=== PATIENT | male | born 1960 | race Caucasian/White ===

== ENCOUNTER 2016-12-01 13:58 | Emergency (ER) | payer OTHER ==
--- NOTE | 2016-12-01 15:10 | ED ORDER SUMMARY ---
..... Patient: CROW CHRISTINA OrderSheet [facility] VisitID: [id number] [address] [place] [address] 56y, M Registration Date/Time: 12/01/2016 ORDER SHEET Weight: 108.8 kg (stated) Allergies: Aspirin GENERAL ORDERS: Ankle 3 or 4V Left Urgent (14:26 12/01/2016 Vernell Patterson) (14:36 [place]) MEDICATION ORDERS: IV FLUIDS: ORDER SHEET NOTES: [Electronically signed by Rosemary Wilson R.N. (15:22 12/01/2016)] [Electronically signed by William Johnson Dr. (16:21 12/03/2016)] [Electronically locked/signed by Rosemary Wilson R.N. (15:12/01/2016)]
--- NOTE | 2016-12-01 15:10 | ED CLINICAL REPORT ---
Clinical Report - Physicians/Mid Levels [facility] [address] [address] 12/01/2016 14:01 Patient: CROW CHRISTINA Arrived- By private vehicle. Historian- patient. HISTORY OF PRESENT ILLNESS Chief Complaint: Injury to the left ankle. The injury happened Past month. (does not recall). (does not recall). Patient is experiencing moderate pain. Patient denies injury to the head or neck. No other injury. (reports he has been evaluated for varicose veins over the area. Reports noDVT when evaluated At outside facility. Reports the redness, swelling, Fever, nausea, or vomiting.). REVIEW OF SYSTEMS No weakness, numbness, suspected foreign body or skin laceration. All systems otherwise negative, except as recorded above. PAST HISTORY See nurses notes. Tetanus immunization status is up-to-date. Problems: no known problems. Medications: Tylenol Oral. Allergies: Aspirin.(itching, rash). SOCIAL HISTORY Smoker- current status unknown. No alcohol use or drug use. Is a local resident. ADDITIONAL NOTES The nursing notes have been reviewed. PHYSICAL EXAM Vital Signs: 12/01/2016 14:13 BP: 148/70. HR: 100. RR: 20. O2 saturation: 99%. Temp: 97.8 F. Pain level now: 8/10. Blood pressure normal. Oxygen saturation normal. Appearance: Alert. Oriented X3. No acute distress. Head: Head atraumatic. Eyes: Pupils equal, round and reactive to light. Eyes normal inspection. ENT: Ears normal. Nose normal. Pharynx normal. Neck: Normal inspection. Neck supple. C-spine non-tender. CVS: Normal heart rate and rhythm. Heart sounds normal. Pulses normal. Respiratory: No respiratory distress. Breath sounds normal. Chest nontender. Abdomen: No visible injury. Soft and nontender. Bowel sounds normal. Skin: Skin intact. Skin warm and dry. Extremities: (mild tenderness over the lateral malleolus on the left ankle. Small area of varicose veins over the area. No joint line tenderness. No bony other maladies. No crepitus. Patient is neurovascularly intact. No knee tenderness. Compartments are soft.). Extremities otherwise negative. Neuro, Vascular and Tendons: Vascular status intact. Sensation intact. Motor intact. Tendon function intact. Gait: Normal gait. LABS, X-RAYS, AND EKG Lt Ankle X-ray: No fracture. Normal alignment. No bony lesion or air in the soft tissue. Joint spaces normal. Views: AP, lateral, mortise and oblique. Technique: good. The X-rays were independently viewed by me and interpreted contemporaneously by me. Prior films were not available for comparison. PROGRESS AND PROCEDURES Course of Care: he patient is a pleasant 56-year-old male presenting for revised of left-sided ankle pain. The patient reports no known incidence of trauma. At this time different diagnosis includes strain/sprain, or pathological fracture. No evidence of infection. Do not feel patient has septic joint. Do not feel joint tap and arthrocentesis is needed at this time. Patient's symptoms have also been ongoing for the past month. Do not feel this is consistent with infectious etiology. Patient is agreeable to treatment plan. Patient Noted to be neurovascularly intact. workup does not show any acute osseous abnormalities with x-ray. Patient continues to be neurovascularly intact. No redness or swelling noted to the area. Patient continues to be afebrile. Patient also continues to be nontoxic and in no acute distress. Do not feel further workup in the emergency department required. Referral to podiatry provided. I discussed with patient weturn precautions. All questios and was agreeable to them. Do not feel patient needs to be admitted to the hospital require further emergency department workup/evaluation. Again do not feel that this is a septic Joint. Disposition: Discharged. Condition: good. CLINICAL IMPRESSION 12/01/2016 14:13 BP: 148/70. HR: 100. RR: 20. O2 saturation: 99%. Temp: 97.8 F. Pain level now: 8/10. Hypertensive. Oxygen saturation normal. Acute nontraumatic pain in the left lower extremity (ankle)(medial, subacute). INSTRUCTIONS Warnings: GENERAL WARNINGS: Return or contact your physician immediately if your condition worsens or changes unexpectedly, if not improving as expected, or if other problems arise. Specifically return if pain, vomiting, bleeding, breathing difficulty or fever. Your Current Medications: CONTINUE TAKING THE FOLLOWING MEDICATIONS: Tylenol Oral. Follow-up: Return to the emergency department as needed. Follow up with your doctor in three days. Reason for referral: recheck today's concerns. Summary of care provided to patient via paper. Screening today revealed the patient's blood pressure to be in the hypertensive range. The patient should follow up with a primary care provider for blood pressure management. Understanding of the discharge instructions verbalized by patient. Follow-up with: Sagar Alicea DPM, Podiatry, , [facility], [address] [place] [address], [place] [address] Follow up in one week. Reason for referral: recheck today's concerns. Summary of care provided to patient via paper. (Electronically signed by William Johnson Dr. 12/03/2016 16:21)
--- NOTE | 2016-12-01 15:10 | ED ORDER SUMMARY ---
..... Patient: CROW CHRISTINA OrderSheet [facility] VisitID: [id number] [address] [place] [address] 56y, M Registration Date/Time: 12/01/2016 ORDER SHEET Weight: 108.8 kg (stated) Allergies: Aspirin GENERAL ORDERS: Ankle 3 or 4V Left Urgent (14:26 12/01/2016 Vernell Patterson) (14:36 [place]) MEDICATION ORDERS: IV FLUIDS: ORDER SHEET NOTES: [Electronically signed by Rosemary Wilson R.N. (15:22 12/01/2016)] [Electronically signed by William Johnson Dr. (16:21 12/03/2016)] [Electronically locked/signed by Rosemary Wilson R.N. (15:12/01/2016)]
--- NOTE | 2016-12-01 15:10 | ED CLINICAL REPORT ---
Clinical Report - Physicians/Mid Levels [facility] [address] [place] [place] [address] 12/01/2016 14:01 Patient: CROW CHRISTINA Arrived- By private vehicle. Historian- patient. HISTORY OF PRESENT ILLNESS Chief Complaint: Injury to the left ankle. The injury happened Past month. (does not recall). (does not recall). Patient is experiencing moderate pain. Patient denies injury to the head or neck. No other injury. (reports he has been evaluated for varicose veins over the area. Reports noDVT when evaluated At outside facility. Reports the redness, swelling, Fever, nausea, or vomiting.). REVIEW OF SYSTEMS No weakness, numbness, suspected foreign body or skin laceration. All systems otherwise negative, except as recorded above. PAST HISTORY See nurses notes. Tetanus immunization status is up-to-date. Problems: no known problems. Medications: Tylenol Oral. Allergies: Aspirin.(itching, rash). SOCIAL HISTORY Smoker- current status unknown. No alcohol use or drug use. Is a local resident. ADDITIONAL NOTES The nursing notes have been reviewed. PHYSICAL EXAM Vital Signs: 12/01/2016 14:13 BP: 148/70. HR: 100. RR: 20. O2 saturation: 99%. Temp: 97.8 F. Pain level now: 8/10. Blood pressure normal. Oxygen saturation normal. Appearance: Alert. Oriented X3. No acute distress. Head: Head atraumatic. Eyes: Pupils equal, round and reactive to light. Eyes normal inspection. ENT: Ears normal. Nose normal. Pharynx normal. Neck: Normal inspection. Neck supple. C-spine non-tender. CVS: Normal heart rate and rhythm. Heart sounds normal. Pulses normal. Respiratory: No respiratory distress. Breath sounds normal. Chest nontender. Abdomen: No visible injury. Soft and nontender. Bowel sounds normal. Skin: Skin intact. Skin warm and dry. Extremities: (mild tenderness over the lateral malleolus on the left ankle. Small area of varicose veins over the area. No joint line tenderness. No bony other maladies. No crepitus. Patient is neurovascularly intact. No knee tenderness. Compartments are soft.). Extremities otherwise negative. Neuro, Vascular and Tendons: Vascular status intact. Sensation intact. Motor intact. Tendon function intact. Gait: Normal gait. LABS, X-RAYS, AND EKG Lt Ankle X-ray: No fracture. Normal alignment. No bony lesion or air in the soft tissue. Joint spaces normal. Views: AP, lateral, mortise and oblique. Technique: good. The X-rays were independently viewed by me and interpreted contemporaneously by me. Prior films were not available for comparison. PROGRESS AND PROCEDURES Course of Care: he patient is a pleasant 56-year-old male presenting for revised of left-sided ankle pain. The patient reports no known incidence of trauma. At this time different diagnosis includes strain/sprain, or pathological fracture. No evidence of infection. Do not feel patient has septic joint. Do not feel joint tap and arthrocentesis is needed at this time. Patient's symptoms have also been ongoing for the past month. Do not feel this is consistent with infectious etiology. Patient is agreeable to treatment plan. Patient Noted to be neurovascularly intact. workup does not show any acute osseous abnormalities with x-ray. Patient continues to be neurovascularly intact. No redness or swelling noted to the area. Patient continues to be afebrile. Patient also continues to be nontoxic and in no acute distress. Do not feel further workup in the emergency department required. Referral to podiatry provided. I discussed with patient weturn precautions. All questios and was agreeable to them. Do not feel patient needs to be admitted to the hospital require further emergency department workup/evaluation. Again do not feel that this is a septic Joint. Disposition: Discharged. Condition: good. CLINICAL IMPRESSION 12/01/2016 14:13 BP: 148/70. HR: 100. RR: 20. O2 saturation: 99%. Temp: 97.8 F. Pain level now: 8/10. Hypertensive. Oxygen saturation normal. Acute nontraumatic pain in the left lower extremity (ankle)(medial, subacute). INSTRUCTIONS Warnings: GENERAL WARNINGS: Return or contact your physician immediately if your condition worsens or changes unexpectedly, if not improving as expected, or if other problems arise. Specifically return if pain, vomiting, bleeding, breathing difficulty or fever. Your Current Medications: CONTINUE TAKING THE FOLLOWING MEDICATIONS: Tylenol Oral. Follow-up: Return to the emergency department as needed. Follow up with your doctor in three days. Reason for referral: recheck today's concerns. Summary of care provided to patient via paper. Screening today revealed the patient's blood pressure to be in the hypertensive range. The patient should follow up with a primary care provider for blood pressure management. Understanding of the discharge instructions verbalized by patient. Follow-up with: Sagar Alicea DPM, Podiatry, , [facility], [address] [place] [address], [place] [address] Follow up in one week. Reason for referral: recheck today's concerns. Summary of care provided to patient via paper. (Electronically signed by William Johnson Dr. 12/03/2016 16:21)
--- NOTE | 2016-12-01 15:10 | ED NURSING NOTES ---
Clinical Report - Nurses [facility] [place] [address] 12/01/2016 14:01 Patient: CROW CHRISTINA TRIAGE Triage time 14:13. Acuity: LEVEL 3. Chief Complaint: LEFT LOWER EXTREMITY PAIN. Location of symptoms- left ankle (hurts all the time, more when walking .). Alert. No acute distress. --14:23 Rosemary Wilson R.N. 14:13 12/01/16. BP: 148/70. HR: 100. RR: 20. O2 saturation: 99%. Temp: 97.8 F. Pain level now: 05/29. --14:23 Rosemary Wilson R.N. 14:13 12/01/16. BP: 148/70. HR: 100. RR: 20. O2 saturation: 99%. Temp: 97.8 F. Pain level now: 05/29. --14:23 Rosemary Wilson R.N. Weight: 108.8 kg stated. Height/Length: 71 inches Per Patient. BMI: 33.5. --14:17 Rosemary Wilson R.N. Medications Tylenol Oral. --14:15 Rosemary Wilson R.N. Medication/allergy information source: the patient. --14:23 Rosemary Wilson R.N. Allergies Aspirin.(itching, rash) --14:15 Rosemary Wilson R.N. History Arrived by private vehicle. Historian: patient. Primary physician ([facility] No injury occurred. This occurred (1 months). He has had trouble walking (painful). 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 PAST MEDICAL HX: Negative. Tetanus status: unknown. SURGERY HX: Cholecystectomy. Right lower extremity fracture repair has been performed once. Abdominal hernia repair. ( skin graft to lt palm, cyst from shoulder. colon resection). SOCIAL HX: Heavy tobacco smoker (cigarette)- less than 1 pack per day. No alcohol use or drug use. FALL RISK ASSESSMENT: Fall risk assessment completed. No fall risk identified. NUTRITIONAL RISK ASSESSMENT: The nutritional risk assessment revealed no deficiencies. FUNCTIONAL ASSESSMENT: Functional assessment: no impairments noted. LEARNING NEEDS ASSESSMENT: The learning needs assessment revealed no barriers. SKIN INTEGRITY ASSESSMENT: Skin integrity risk assessment completed. No skin integrity risk identified. --14:23 Rosemary Wilson R.N. Interventions ID band on patient. To room. --14:23 Rosemary Wilson R.N. PHYSICAL ASSESSMENT Ambulatory to room. GENERAL / NEURO / PSYCH: Appears in pain and anxious. EXTREMITIES: Left ankle: tenderness. SKIN: Skin intact. Skin is warm and dry. --14:24 Rosemary Wilson R.N. NURSING PROGRESS NOTES Extremity elevated. Patient gowned. Two patient identifiers checked. Call light placed in reach. Side rails up. Bed placed in lowest position. Brakes of bed on. Patient ready for evaluation. --14:24 Rosemary Wilson R.N. DISPOSITION / DISCHARGE 15:21 12/01/16. No learning barriers present. Discharge instructions provided and reviewed with the patient. Reviewed referral to a instrument man for followup. Patient verbalized understanding. Written instructions provided in Sami. The patient was discharged home. He left the Emergency Department ambulatory and via private vehicle. Patient driving. Medication list reviewed and validated. --15:21 Rosemary Wilson R.N. 15:20 12/01/16. BP: 126/74. HR: 80. RR: 20. O2 saturation: 98%. Temp: deferred. Pain level now: 12/27. 14:13 12/01/16. BP: 148/70. HR: 100. RR: 20. O2 saturation: 99%. Temp: 97.8 F. Pain level now: 05/29. --15:21 Rosemary Wilson R.N. Locked/Released at 12/01/2016 15:22 by Rosemary Wilson R.N.
--- NOTE | 2016-12-01 15:10 | ED NURSING NOTES ---
Clinical Report - Nurses [facility] [place] [address] 12/01/2016 14:01 Patient: CROW CHRISTINA TRIAGE Triage time 14:13. Acuity: LEVEL 3. Chief Complaint: LEFT LOWER EXTREMITY PAIN. Location of symptoms- left ankle (hurts all the time, more when walking .). Alert. No acute distress. --14:23 Rosemary Wilson R.N. 14:13 12/01/16. BP: 148/70. HR: 100. RR: 20. O2 saturation: 99%. Temp: 97.8 F. Pain level now: 05/29. --14:23 Rosemary Wilson R.N. 14:13 12/01/16. BP: 148/70. HR: 100. RR: 20. O2 saturation: 99%. Temp: 97.8 F. Pain level now: 05/29. --14:23 Rosemary Wilson R.N. Weight: 108.8 kg stated. Height/Length: 71 inches Per Patient. BMI: 33.5. --14:17 Rosemary Wilson R.N. Medications Tylenol Oral. --14:15 Rosemary Wilson R.N. Medication/allergy information source: the patient. --14:23 Rosemary Wilson R.N. Allergies Aspirin.(itching, rash) --14:15 Rosemary Wilson R.N. History Arrived by private vehicle. Historian: patient. [facility] No injury occurred. This occurred (1 months). He has had trouble walking (painful). 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 PAST MEDICAL HX: Negative. Tetanus status: unknown. SURGERY HX: Cholecystectomy. Right lower extremity fracture repair has been performed once. Abdominal hernia repair. ( skin graft to lt palm, cyst from shoulder. colon resection). SOCIAL HX: Heavy tobacco smoker (cigarette)- less than 1 pack per day. No alcohol use or drug use. FALL RISK ASSESSMENT: Fall risk assessment completed. No fall risk identified. NUTRITIONAL RISK ASSESSMENT: The nutritional risk assessment revealed no deficiencies. FUNCTIONAL ASSESSMENT: Functional assessment: no impairments noted. LEARNING NEEDS ASSESSMENT: The learning needs assessment revealed no barriers. SKIN INTEGRITY ASSESSMENT: Skin integrity risk assessment completed. No skin integrity risk identified. --14:23 Rosemary Wilson R.N. Interventions ID band on patient. To room. --14:23 Rosemary Wilson R.N. PHYSICAL ASSESSMENT Ambulatory to room. GENERAL / NEURO / PSYCH: Appears in pain and anxious. EXTREMITIES: Left ankle: tenderness. SKIN: Skin intact. Skin is warm and dry. --14:24 Rosemary Wilson R.N. NURSING PROGRESS NOTES Extremity elevated. Patient gowned. Two patient identifiers checked. Call light placed in reach. Side rails up. Bed placed in lowest position. Brakes of bed on. Patient ready for evaluation. --14:24 Rosemary Wilson R.N. DISPOSITION / DISCHARGE 15:21 12/01/16. No learning barriers present. Discharge instructions provided and reviewed with the patient. Reviewed referral to a time stamp assembler for followup. Patient verbalized understanding. Written instructions provided in Frisian. The patient was discharged home. He left the Emergency Department ambulatory and via private vehicle. Patient driving. Medication list reviewed and validated. --15:21 Rosemary Wilson R.N. 15:20 12/01/16. BP: 126/74. HR: 80. RR: 20. O2 saturation: 98%. Temp: deferred. Pain level now: 12/27. 14:13 12/01/16. BP: 148/70. HR: 100. RR: 20. O2 saturation: 99%. Temp: 97.8 F. Pain level now: 05/29. --15:21 Rosemary Wilson R.N. Locked/Released at 12/01/2016 15:22 by Rosemary Wilson R.N.
--- NOTE | 2016-12-01 15:34 | DIAGNOSTIC IMAGING REPORT ---
PROCEDURE: XR ANKLE 3 OR 4 VIEWS - LEFT INDICATION: Medial ankle pain. TECHNIQUE: Four views. COMPARISON: None. FINDINGS: Osseous structures and joint spaces are normal. IMPRESSION: 1. Normal left ankle.
--- NOTE | 2016-12-03 16:21 | ED MAR SUMMARY ---
..... Medication Administration Record [facility] [address] [place], [place] [id number] Patient: CROW CHRISTINA Visit ID: [id number] 56y, M Weight: 108.8 kg Height/Length: 71 in BMI: 33.5 ALLERGIES: Aspirin
--- NOTE | 2016-12-03 16:21 | ED DISCHARGE INSTRUCTIONS ---
Patient: CROW CHRISTINA General Instructions [facility] VisitID: [id number] [place] [address] 56y, M Registration Date/Time: 12/01/2016 12/01/2016 14:13 BP: 148/70. HR: 100. RR: 20. O2 saturation: 99%. Temp: 97.8 F. Pain level now: 8/10. Hypertensive. Oxygen saturation normal. Acute nontraumatic pain in the left lower extremity (ankle)(medial, subacute). INSTRUCTIONS Warnings: GENERAL WARNINGS: Return or contact your physician immediately if your condition worsens or changes unexpectedly, if not improving as expected, or if other problems arise. Specifically return if pain, vomiting, bleeding, breathing difficulty or fever. Your Current Medications: CONTINUE TAKING THE FOLLOWING MEDICATIONS: Tylenol Oral. Follow-up: Return to the emergency department as needed. Follow up with your doctor in three days. Reason for referral: recheck today's concerns. Summary of care provided to patient via paper. Screening today revealed the patient's blood pressure to be in the hypertensive range. The patient should follow up with a primary care provider for blood pressure management. Understanding of the discharge instructions verbalized by patient. Follow-up with: Sagar Alicea DPM, Podiatry, , [facility], [address] [place] [address], [address] [address] Follow up in one week. Reason for referral: recheck today's concerns. Summary of care provided to patient via paper. ADDITIONAL INFORMATION Pain, Uncertain Cause [Acute] Pain is the bodys way of calling attention to a problem. Pain can be caused by many conditions - some minor, some serious. In your case, we were not able to find the exact cause for your pain. However, at this time there is no sign of any serious or life-threatening illness causing your pain. Sometimes more tests will be needed to determine the cause. Other times, just allowing more time to pass will either make it clear what the problem is, or the pain will go away by itself. Home Care: You may use acetaminophen (Tylenol) or ibuprofen (Motrin, Advil) to control pain, unless another medicine was prescribed. [NOTE: If you have chronic liver or kidney disease or ever had a stomach ulcer or GI bleeding, talk with your doctor before using these medicines.] Follow Up with your doctor or as advised by our staff. Get Prompt Medical Attention if any of the following occur: Changes in the pattern of your pain Appearance of new symptoms Fever of 100.4F (38C) or higher, or as directed by your healthcare provider You have been given the following additional information: Pain, Uncertain Cause (Acute) (Electronically signed by William Johnson Dr. 12/03/2016 16:21)
--- NOTE | 2016-12-03 16:21 | ED MAR SUMMARY ---
..... Medication Administration Record [facility] [address] [place] [place], [place] [id number] Patient: CROW CHRISTINA Visit ID: [id number] 56y, M Weight: 108.8 kg Height/Length: 71 in BMI: 33.5 ALLERGIES: Aspirin
--- NOTE | 2016-12-03 16:21 | ED MED RECONCILIATION SUMMARY ---
Patient: CROW CHRISTINA Medication Reconciliation Report [facility] VisitID: [id number] [address] [place] [place] [address] 56y, M Registration Date/Time: 12/01/2016 Weight: 108.8 kg Height/Length: 71 in. BMI: 33.5 ALLERGIES: Aspirin The patient's Home Medications are listed below: CONTINUE TAKING THE FOLLOWING MEDICATIONS: Tylenol Oral The source(s) of the original Home Medication information: patient The following Medications were given to the patient in the Emergency Department: None. The following Medications were prescribed to the patient: None.
--- NOTE | 2016-12-03 16:21 | ED MED RECONCILIATION SUMMARY ---
Patient: CROW CHRISTINA Medication Reconciliation Report [facility] VisitID: [id number] [address] [place] [address] 56y, M Registration Date/Time: 12/01/2016 Weight: 108.8 kg Height/Length: 71 in. BMI: 33.5 ALLERGIES: Aspirin The patient's Home Medications are listed below: CONTINUE TAKING THE FOLLOWING MEDICATIONS: Tylenol Oral The source(s) of the original Home Medication information: patient The following Medications were given to the patient in the Emergency Department: None. The following Medications were prescribed to the patient: None.
--- NOTE | 2016-12-03 16:21 | ED DISCHARGE INSTRUCTIONS ---
Patient: CROW CHRISTINA General Instructions [facility] VisitID: [id number] [place] [address] 56y, M Registration Date/Time: 12/01/2016 12/01/2016 14:13 BP: 148/70. HR: 100. RR: 20. O2 saturation: 99%. Temp: 97.8 F. Pain level now: 8/10. Hypertensive. Oxygen saturation normal. Acute nontraumatic pain in the left lower extremity (ankle)(medial, subacute). INSTRUCTIONS Warnings: GENERAL WARNINGS: Return or contact your physician immediately if your condition worsens or changes unexpectedly, if not improving as expected, or if other problems arise. Specifically return if pain, vomiting, bleeding, breathing difficulty or fever. Your Current Medications: CONTINUE TAKING THE FOLLOWING MEDICATIONS: Tylenol Oral. Follow-up: Return to the emergency department as needed. Follow up with your doctor in three days. Reason for referral: recheck today's concerns. Summary of care provided to patient via paper. Screening today revealed the patient's blood pressure to be in the hypertensive range. The patient should follow up with a primary care provider for blood pressure management. Understanding of the discharge instructions verbalized by patient. Follow-up with: Sagar Alicea DPM, Podiatry, , [facility], [address] [place] [address], [address] [id number] Follow up in one week. Reason for referral: recheck today's concerns. Summary of care provided to patient via paper. ADDITIONAL INFORMATION Pain, Uncertain Cause [Acute] Pain is the bodys way of calling attention to a problem. Pain can be caused by many conditions - some minor, some serious. In your case, we were not able to find the exact cause for your pain. However, at this time there is no sign of any serious or life-threatening illness causing your pain. Sometimes more tests will be needed to determine the cause. Other times, just allowing more time to pass will either make it clear what the problem is, or the pain will go away by itself. Home Care: You may use acetaminophen (Tylenol) or ibuprofen (Motrin, Advil) to control pain, unless another medicine was prescribed. [NOTE: If you have chronic liver or kidney disease or ever had a stomach ulcer or GI bleeding, talk with your doctor before using these medicines.] Follow Up with your doctor or as advised by our staff. Get Prompt Medical Attention if any of the following occur: Changes in the pattern of your pain Appearance of new symptoms Fever of 100.4F (38C) or higher, or as directed by your healthcare provider You have been given the following additional information: Pain, Uncertain Cause (Acute) (Electronically signed by William Johnson Dr. 12/03/2016 16:21)
== END 2016-12-01 15:15 | disposition home or self-care (01) ==
LOC: ED SRH 13:58
DX: M25.572 Pain in left ankle and joints of left foot (principal); I83.92 Asymptomatic varicose veins of left lower extremity; Z88.6 Allergy status to analgesic agent